=== PATIENT | male | born 1960 | race Caucasian/White ===

== ENCOUNTER 2016-07-14 08:11 | Inpatient (IN) | payer BC ==
[~2016-07-14] VITALS: Ht 177.8 cm; Wt 98.0 kg
[2016-07-14] MEDS ORDERED: DILTIAZEM BOLUS / DRIP IV STA (08:28)
[2016-07-14] MEDS ORDERED: ASPCH81X PO (08:28)
[2016-07-14] MEDS ORDERED: ASPI325T45 PO (08:30)
[2016-07-14 08:37] LABS: BASO % 0.3 %; BASO ABS # 0.03 K/uL (0-0.2); COMPLETE YES; EOS % 0.7 %; HEMATOCRIT 45.7 % (42-52); IG% 0.5 %; LYMPH % 23.3 %; LYMPH ABS # 2.29 K/uL (1.2-3.4); MEAN CELL VOLUME 92.3 fL (80-100); MEAN CORPUSCULAR HEMOGLOBIN 30.9 pg (25-34); MEAN CORPUSCULAR HGB CONC 33.5 g/dl (32-36); MEAN PLATELET VOLUME 9.5 fL (7.4-10.4); MONO % 8.6 %; NEUT % 66.6 %; PLATELET COUNT 317 K/uL (130-400); RED BLOOD COUNT 4.95 M/uL (4.7-6.1); WHITE BLOOD COUNT 9.81 K/uL (4.8-10.8)
--- NOTE | 2016-07-14 08:39 | EMERGENCY ROOM VISIT NOTE ---
History First contact with patient: 08:19 Chief Complaint: CHEST PAIN Stated Complaint: DIZZINESS,BACK PAIN, CHEST PAIN Nursing Triage Summary: pt reports since 629 while at work he developed left sided chest pain, dizziness, lower back pain and feeling lightheaded. pt denies any hx of a-fib. History of Present Illness The patient is a 55 year old male who presents to the Emergency Room via private vehicle with complaints of "dizziness, back pain, chest pain". The patient states that he has had an irregular heartbeat off and on for the past few years. He has not been told any specific diagnosis or rhythm. He notes that today around 6:30 AM, he began with lightheadedness, that progressed to back pain and pain in the left anterior chest around 7 AM this morning. He did have diaphoresis, and then fell cold. This was with activity. There is minimal left anterior chest pain rated as a 1/10. He did take 2 full strength aspirin today. He notes that a few years ago he had a Holter monitor, and exercise stress test which showed that he does have a thickened left side of his heart. He denies any anticoagulant use other than aspirin, history of heart attack in the past, and notes that his blood pressure has been pretty high. It is unclear how long his symptoms have been totally occurring. He notes that he does drink regularly, and is unable to quantify use of beers. Review of Systems A complete 10-point Review of Systems was discussed with the patient, with pertinent positives and negatives listed in the History of Present Illness. All remaining Review of Systems questions can be considered negative unless otherwise specified. Past Medical/Surgical History Medical Problems: (1) afib wit rvr, heavy alcohol intake for yrs High blood pressure, anxiety Family History Father has colon cancer, otherwise not remarkable. Social History Smoking Status: Never Smoker Social History: Patient is currently employed at [email or web address] Current/Historical Medications Scheduled Aspirin (Aspirin Chewable), 81 MG PO DAILY Scheduled PRN Aspirin (Aspirin), 650 MG PO DAILY PRN for Dizziness or Vertigo Allergies Coded Allergies: Penicillins (Verified Allergy, Intermediate, RASH, 07/14/16) Physical Exam Vital Signs Date Time Temp Pulse Resp B/P Pulse Ox O2 Delivery O2 Flow Rate FiO2 07/14/16 11:00 107 19 145/96 94 Room Air 07/14/16 10:30 128 16 134/81 93 Room Air 07/14/16 10:00 118 20 111/90 93 Room Air 07/14/16 09:30 122 20 125/81 92 Room Air 07/14/16 09:23 102 16 138/88 94 Room Air 07/14/16 08:45 167 15 124/88 94 Room Air 07/14/16 08:30 152 14 149/88 07/14/16 08:19 172 07/14/16 08:17 97 Room Air 07/14/16 08:15 36.7 159 22 123/106 100 Room Air 07/14/16 08:15 100 Room Air Physical Exam VITAL SIGNS - Vital signs and nursing notes were reviewed. Patient is afebrile , blood pressure 123/106, is tachycardic at a rate of 159 bpm, and is saturating well on room air 100%. GENERAL -55-year-old male appearing his stated age who is in no acute distress. He talks in full sentences. There is no conversational dyspnea. Communicates well with provider and answers questions appropriately. SKIN - Without rashes. HEAD - NC/AT. No evidence of trauma to the head. EYES - PERRL with EOMI bilaterally. Sclera anicteric. Palpebral conjunctiva pink and moist with no injection noted. EARS - No deformities of external structures noted on gross examination bilaterally. No pain elicited with palpation of the tragus bilaterally. External auditory canals without discharge or otorrhea. Tympanic membranes pearly spear without retraction or bulging. No fluid or purulent material visualized behind the TM. Handle of malleus, umbo, cone of light, pars tensa/ flaccid all easily visualized. NOSE - Midline and without cyanosis. No epistaxis or purulent drainage noted. Septum midline without deviation or septal hematoma noted. MOUTH/OROPHARYNX - Without perioral cyanosis. Buccal mucosa pink and moist and without leukoplakia. Tongue midline with equal elevation of palate bilaterally. No tonsillar hypertrophy, erythema, or exudates noted. Fair dentition noted. NECK - Neck with FROM. No meningismus. LUNGS - Chest wall symmetric without accessory muscle use, intercostals retractions, or central cyanosis. Normal vesicular breath sounds CTA B/L. No wheezes, rales, or rhonchi appreciated. CARDIAC - there is an irregular heart rate with S1/S2. No murmur, rubs, or gallops appreciated. ABDOMEN - Abdominal contour without pulsations or visible masses. BS normoactive all four quadrants. No tenderness, palpable masses, hepatosplenomegaly, or ascites noted. EXTREMITIES - No clubbing or peripheral cyanosis. No pretibial edema present. The pulse is irregularly irregular. +5/5 strength noted in UE/LE bilaterally. NEUROLOGIC - Cranial nerves II through XII grossly intact. Sensory intact to light touch throughout. PSYCH - A&Ox3 and cooperates fully with examiner. Pt is very pleasant and interacts well with examiner. Medical Decision & Procedures ER Provider Diagnostic Interpretation: CHEST ONE VIEW PORTABLE CLINICAL HISTORY: Chest pain, dizziness COMPARISON STUDY: No previous studies for comparison. FINDINGS: Lung volumes are normal. There is no pneumothorax or pleural effusion. Pulmonary vascularity is normal. No consolidation is identified. There is borderline cardiomegaly. IMPRESSION: No acute cardiopulmonary findings. Electronically signed by: Jax Dumont M.D. 07/14/2016 8:59 AM Dictated Date/Time: 07/14/2016 8:59 AM Laboratory Results 07/14/16 08:20 Red Blood Count 4.95, Mean Corpuscular Volume 92.3, Mean Corpuscular Hemoglobin 30.9, Mean Corpuscular Hemoglobin Concent 33.5, Mean Platelet Volume 9.5, Neutrophils (%) (Auto) 66.6, Lymphocytes (%) (Auto) 23.3, Monocytes (%) (Auto) 8.6, Eosinophils (%) (Auto) 0.7, Basophils (%) (Auto) 0.3, Neutrophils # (Auto) 6.53, Lymphocytes # (Auto) 2.29, Monocytes # (Auto) 0.84, Eosinophils # (Auto) 0.07, Basophils # (Auto) 0.03 07/14/16 08:20 Test 07/14/16 08:20 07/14/16 09:25 07/14/16 09:55 White Blood Count 9.81 K/uL (4.8-10.8) Red Blood Count 4.95 M/uL (4.7-6.1) Hemoglobin 15.3 g/dL (14.0-18.0) Hematocrit 45.7 % (42-52) Mean Corpuscular Volume 92.3 fL (80-100) Mean Corpuscular Hemoglobin 30.9 pg (25-34) Mean Corpuscular Hemoglobin Concent 33.5 g/dl (32-36) Platelet Count 317 K/uL (130-400) Mean Platelet Volume 9.5 fL (7.4-10.4) Neutrophils (%) (Auto) 66.6 % Lymphocytes (%) (Auto) 23.3 % Monocytes (%) (Auto) 8.6 % Eosinophils (%) (Auto) 0.7 % Basophils (%) (Auto) 0.3 % Neutrophils # (Auto) 6.53 K/uL (1.4-6.5) Lymphocytes # (Auto) 2.29 K/uL (1.2-3.4) Monocytes # (Auto) 0.84 K/uL (0.11-0.59) Eosinophils # (Auto) 0.07 K/uL (0-0.5) Basophils # (Auto) 0.03 K/uL (0-0.2) RDW Standard Deviation 46.6 fL (36.4-46.3) RDW Coefficient of Variation 13.8 % (11.5-14.5) Immature Granulocyte % (Auto) 0.5 % Immature Granulocyte # (Auto) 0.05 K/uL (0.00-0.02) Prothrombin Time 10.3 SECONDS (9.0-12.0) Prothromb Time International Ratio 1.0 (0.9-1.1) D-Dimer < 190 ug/L FEU (0-500) Anion Gap 12.0 mmol/L (3-11) Est Creatinine Clear Calc Drug Dose 99.6 ml/min Estimated GFR () 97.1 Estimated GFR (Non- 83.8 BUN/Creatinine Ratio 16.3 (10-20) Calcium Level 9.0 mg/dl (8.5-10.1) Magnesium Level 2.1 mg/dl (1.8-2.4) Total Bilirubin 0.5 mg/dl (0.2-1) Aspartate Amino Transf (AST/SGOT) 69 U/L (15-37) Alanine Aminotransferase (ALT/SGPT) 47 U/L (12-78) Alkaline Phosphatase 57 U/L (45-117) Total Protein 7.7 gm/dl (6.4-8.2) Albumin 3.8 gm/dl (3.4-5.0) Globulin 3.9 gm/dl (2.5-4.0) Albumin/Globulin Ratio 1.0 (0.9-2) Thyroid Stimulating Hormone (TSH) 2.420 uIu/ml (0.300-4.500) Chemistry Specimen Hemolysis Urine Color YELLOW Urine Appearance CLEAR (CLEAR) Urine pH 6.0 (4.5-7.5) Urine Specific [place] 1.007 (1.000-1.030) Urine Protein NEG (NEG) Urine Glucose (UA) NEG (NEG) Urine Ketones NEG (NEG) Urine Occult Blood NEG (NEG) Urine Nitrite NEG (NEG) Urine Bilirubin NEG (NEG) Urine Urobilinogen NEG (NEG) Urine Leukocyte Esterase NEG (NEG) Urine Opiates Screen NEG (NEG) Urine Methadone, Qualitative NEG (NEG) Urine Barbiturates NEG (NEG) Urine Phencyclidine (PCP) Level NEG (NEG) Ur Amphetamine/Methamphetamine NEG (NEG) MDMA (Ecstasy) Screen NEG (NEG) Urine Benzodiazepines Screen NEG (NEG) Urine Cocaine Metabolite NEG (NEG) Urine Marijuana (THC) NEG (NEG) Bedside Troponin I 0.000 ng/ml (0-0.045) Medications Administered Medications (Trade) Dose Ordered Sig/Francesca Route Start Time Stop Time Status Last Admin Dose Admin Diltiazem HCl 1 ea 1 ea NOW STAT IV 07/14/16 08:28 07/14/16 08:33 DC 07/14/16 09:13 1 EA Diltiazem HCl 125 mg/Dextrose 125 ml @ 10 mls/hr [id number] PRN IV 07/14/16 08:45 07/14/16 09:05 DC 07/14/16 08:59 10 MLS/HR Diltiazem HCl/ Dextrose (Cardizem Inj/D5 100ml) 125 ml @ 0 mls/hr Q0M PRN IV 07/14/16 09:15 08/13/16 09:14 07/14/16 16:28 15 MLS/HR Medical Decision Patient was seen and evaluated as above. After obtaining a thorough history and physical examination IV access was initiated and the above workup was performed. EKG was obtained upon his entrance and reveals atrial fibrillation with RVR, and and nonspecific ST segment abnormality. There is minimal chest pain at this time, he is alert and has already taken 2 aspirin. He has never heard the diagnosis of atrial fibrillation previously. He'll be started on a Cardizem drip at a 20 mg bolus, followed by 10 mg per hour drip. This successfully decrease his heart rate from the 170s down to 120s. After roughly 2 hours, his resting average is right around 100 bpm. Unfortunately, atrialfibrillation has persisted, and due to what appears to be a new onset of this I believe that further management may be warranted. I do not believe that cardioversion at this time would be appropriate, given the unknown duration of the atrial fibrillation. CBC unremarkable for acute process, d-dimer negative, CMP with glucose of 138, and AST elevated at 69. Troponin negative 2. TSH unremarkable. The urine is also unremarkable as well as urine toxicology. Chest x-ray unremarkable for acute process, there is borderline cardiomegaly. Patient is aware that he does have wall thickening as identified on previous echo. Please refer to further documentation regarding the patient's stay, as she'll be admitted for further evaluation and management to [facility] service as per request. Although he notes that he does follow with [facility], he no longer wishes to follow with them. In evaluation treatment this patient following differential diagnoses were entertained: Atrial fibrillation, PE, dissection, NM, among others. Impression Primary Impression: Atrial fibrillation Departure Information Dispostion Admitted as an inpatient Condition FAIR Referrals No Doctor, Assigned (PCP) [facility] Instructions [facility]
[2016-07-14] MEDS ORDERED: DILTIAZEM HCL INJ 125 MG in DEXTROSE 5% 100ML IV PRN (08:45)
[2016-07-14 08:52] LABS: BUN/CREATININE RATIO 16.3 (10-20); MAGNESIUM 2.1 mg/dl (1.8-2.4)
--- NOTE | 2016-07-14 09:01 | DIAGNOSTIC IMAGING REPORT ---
CHEST ONE VIEW PORTABLE CLINICAL HISTORY: Chest pain, dizziness COMPARISON STUDY: No previous studies for comparison. FINDINGS: Lung volumes are normal. There is no pneumothorax or pleural effusion. Pulmonary vascularity is normal. No consolidation is identified. There is borderline cardiomegaly. IMPRESSION: No acute cardiopulmonary findings. Electronically signed by: Jax Dumont M.D. 07/14/2016 8:59 AM Dictated Date/Time: 07/14/2016 8:59 AM
[2016-07-14 09:08] LABS: THYROID STIMULATING HORMONE 2.42 uIu/ml (0.300-4.500)
[2016-07-14] MEDS ORDERED: DILTIAZEM HCL 5 MG/ML 5 ML VIAL ONE (09:11)
[2016-07-14] MEDS ORDERED: DILTIAZEM HCL INJ 125 MG in DEXTROSE 5% 100ML 100 ML IV PRN (09:15)
[2016-07-14 09:46] LABS: URINE APPEARANCE CLEAR (CLEAR); URINE BILIRUBIN NEG (NEG); URINE COLOR YELLOW; URINE NITRITE NEG (NEG); URINE SPECIFIC GRAVITY 1.007 (1.000-1.030); UROBILINOGEN NEG (NEG); ZZUR CULT IF INDIC CLEAN CATCH NO
[2016-07-14 09:53] LABS: MANUAL MICROSCOPIC REQUIRED? NO; REVIEW REQ? NO
[2016-07-14 10:26] LABS: BENZODIAZEPINE, URINE NEG (NEG); COCAINE,URINE NEG (NEG); PHENCYCLIDINE, URINE NEG (NEG)
[2016-07-14] MEDS ORDERED: ZOLPIDEM TARTRATE 5 MG TAB PO PRN (11:15)
[2016-07-14] MEDS ORDERED: LORAZEPAM 1 MG TAB PO PRN (11:15)
[2016-07-14] MEDS ORDERED: ALUMINUM/MAGNESIUM/SIMETH (MAALOX MAX) 30 ML UDC PO PRN (11:15)
[2016-07-14] MEDS ORDERED: ACETAMINOPHEN 325 MG TAB PO PRN (11:15)
[2016-07-14] MEDS ORDERED: MAGNESIUM HYDROXIDE SUSP 30 ML UDC PO PRN (11:15)
[2016-07-14] MEDS ORDERED: DILTIAZEM BOLUS / DRIP IV SCH (11:15)
[2016-07-14] MEDS ORDERED: MoRPHine SULFATE 2 MG/ML CARP IV PRN (11:15)
[2016-07-14] MEDS ORDERED: ONDANSETRON INJ 2 MG/ML 2 ML VIAL IV PRN (11:15)
[2016-07-14] MEDS ORDERED: POLYETHYLENE (MIRALAX) 17 GM PACK PO PRN (11:15)
--- NOTE | 2016-07-14 11:29 | Progress Note ---
Progress Note Date of Service July 14, 2016. Progress Note afib wit rvr, heavy alcohol intake for yrs, [phone]
--- NOTE | 2016-07-14 12:03 | HISTORY & PHYSICAL EXAMINATION ---
DATE OF ADMISSION: 07/14/2016 CHIEF COMPLAINT: Palpitation and chest pain. HISTORY OF PRESENT ILLNESS: The patient is a 55-year-old white male with history of palpitation, high blood pressure, anxiety, heavy alcohol intake, coming to the hospital Emergency Department because of the above chief complaint. The patient reported he has primary care physician in [facility]. However, he would like to switch to [facility]. Therefore, I agree to continue taking care of him. The patient reported he has been feeling like chest pain, dizziness and back pain. There was a feeling of irregular heart beating, racing heart come on and off for several years. It about 1 or 2 times in 1 or 2 years. PCP setting up Holter monitor some evaluations and there was no really final diagnosis. This morning around 6:30, he begin to feeling palpitations, lightheadedness associated with chest pain. The pain level was 1-2/10. The pain radiation back to the upper back. Associated with diaphoresis and feel cold and lasting about 10-15 minutes. He was taking aspirin until 1 month ago. He running out of it and he discontinued it. In the Emergency Room, his heart rate was up to 170-150. He got 20 mg Cardizem bolus and then at 10 mg per hour drip. Currently, heart rate is around 100/90s. When I interviewed with him, he is awake, alert, and orientated, conversational, follows all commands. No chest pain, no palpitation, no any other symptoms. REVIEW OF SYSTEMS: Denies any fever or chills. Denied cough, sputum, shortness of breath. Denied palpitation. Currently, denied nausea, vomiting, abdominal pain, diarrhea, or constipation. Denied dysuria, urgency, or frequencies. Denied facial droop, slurry speeches or local weakness. Denies skin rashes. Otherwise, 14 points organized system review were negative. PAST MEDICAL HISTORY: Like I mentioned in the above which include hypertension, anxiety, palpitations. SOCIAL HISTORY: Never smoked, but drink alcohol 4-5 beers every day for many years. Never had history of alcohol withdrawal. FAMILY HISTORY: Father has colon cancer, otherwise not remarkable. ALLERGIES: ALLERGIC TO PENICILLIN. MEDICATIONS: Currently taking include aspirin, but running out of it more than 1 month ago. PHYSICAL EXAMINATION: VITAL SIGNS: Temperature is 36.7. Current heart rate is 90, respiratory rate 16, blood pressure 131/81, pulse ox was 83% in room air. GENERAL: The patient is a white male, awake, alert and orientated, conversational, follows all commands. HEAD: Normocephalic. EYES: Pupils equal, round responds to light. EARS: Ear was normal. NOSE: Normal. NECK: Supple. Thyroid no enlargement. Trachea midline. HEART: Irregularly irregular S1, S2. No murmur. LUNGS: Decreased breathing sounds. There was no wheezing, rhonchi and crackles. ABDOMEN: Soft, nontender. Bowel sound was positive. GENITOURINARY AND RECTAL: Deferred. EXTREMITIES: Bilateral lower extremity, no swelling. Homans sign was negative. Calf was nontender. PSYCHIATRY EVALUATION: No suicidal, no homicidal, no anxieties. NEUROLOGICAL EVALUATION: Cranial nerves II-XII was intact. There was no local deficits. LABORATORY STUDIES: WBC 9.8, hemoglobin 15, platelets 317. Sodium 138, potassium 4, BUN 16, creatinine 1. Blood glucose 138. IMAGING STUDIES: Chest x-ray has no acute disease. EKG in the ER shows Afib with rapid ventricular response. No ST-T wave changes. ASSESSMENT AND PLAN: A 55-year-old white male with the problems below: 1. Atrial fibrillation with rapid ventricular response, new identified, new diagnosed. 2. History of palpitation. 3. Chest pain associated with atrial fibrillation with risk factors of hypertension. We will need to check fasting lipid panel as well and check hemoglobin A1c as well. We will have cardiology evaluation, stress test if needed. 4. Heavy alcohol intake long-term. No history of alcohol withdrawal. The patient reported stay in the hospital 1 or 2 days could be no problem. However, we will check a folic acid levels. Will give folic acid, vitamin B12, thiamine and multiple vitamin. Will start AWOL protocol, Ativan p.o. as needed for alcohol withdrawal symptoms. I did counseling about quit alcohol drinking because probably alcohol issues may cause his Afib conditions and long-term alcohol intake may have caused alcoholic cardiomyopathy related disease. Therefore, echocardiogram was ordered as well for this purpose as well, not only for the Afib. At the same time, we will have cardiology consultation. Check cardiac enzymes, troponin 2 sets more. 5. We will start aspirin. Follow up blood pressure levels. For now he is not on any blood pressure medication. 6. Gastrointestinal prophylaxis will be PPI and DVT prophylaxis is on Lovenox. Like I mentioned in the above, the patient has PCP with [facility]. Upon discharge he needs to have navigator help to setting up office follow-up visit with [facility] physicians. JIMMIE
[2016-07-14 12:40] VITALS: BP 132/97; PULSE 104; TEMP 36.7; O2SAT 94; Ht 177.8 cm; Wt 98.0 kg
[2016-07-14 12:45] VITALS: BP 132/97; PULSE 104; TEMP 36.7; O2SAT 94
[2016-07-14 14:59] LABS: PROTHROMBIN TIME (PATIENT) 10.3 SECONDS (9.0-12.0)
[2016-07-14 15:08] VITALS: BP 125/87; PULSE 88; TEMP 36.7; O2SAT 96
[2016-07-14] MEDS: ENOXAPARIN 40 MG/0.4 ML SYR SC SCH (16:30)
--- NOTE | 2016-07-14 18:27 | Cardiology Consultation ---
Cardiology Consultation Date of Consultation: July 14, 2016. Requesting Physician: Dr. Aleman Reason for Consultation: Atrial fibrillation with rapid ventricular response Pt evaluation today including: conversation w/ patient, physical exam, lab review, review of studies, review of inpatient medication list History of Present Illness This is a 55-year-old gentleman who has a history of hypertension and heavy alcohol intake and a long history of palpitations which I believe have been diagnosed as atrial fibrillation but I'm not sure. His prior evaluation was through [facility], that occurred several years ago although he can't give me a precise dates. He reports having intermittent episodes of an irregular heart rate, he believes the first episode was 2 or 3 years ago and he would get episodes every 2 or 3 months. He believes they lasted from 15 minutes to an hour or so. He reports having a normal stress test in the past when these palpitations were evaluated. He tells me that no specific treatment for the arrhythmia was recommended. He presented to the emergency room with worsening palpitations. He had onset of a rapid irregular heart rate when he went into work at about 6:30 AM, this continued and he came to the emergency room. In the emergency room he was found to be in atrial fibrillation with rapid ventricular response. He also reported having discomfort with pain radiating to his back and he was diaphoretic. He was treated with intravenous Cardizem and shortly after admission the rhythm converted to normal. The duration of the arrhythmia was probably about 8 hours. At the time of my evaluation (in sinus rhythm) he feels well. He does not have any residual palpitations or chest discomfort. He notes no change in his exercise ability recently and no exertional symptoms. Past Medical/Surgical History (1) Atrial fibrillation Social History Smoking Status: Unknown if Ever Smoked History of Alcohol Use: Yes (4-5 beers daily) Review of Systems Constitutional: No fever, No weakness, No weight loss Respiratory: No cough, No dyspnea on exertion, No shortness of breath, No wheezing Cardiac: + chest pain, + palpitations, + see HPI, No PND, No edema, No orthopnea Abdomen: No GI bleeding, No diarrhea, No nausea, No pain, No vomiting Male : No nocturia more than once/night, No sexual dysfunction, No slowing stream, No urinary frequency Neurologic: No balance problems, No numbness/tingling, No paralysis, No weakness Heme: No abnormal bleeding/bruising, No clotting problems Endo: No fatigue Skin: No problem reported All Other Systems: Reviewed and Negative Allergies Coded Allergies: Penicillins (Verified Allergy, Intermediate, RASH, 07/14/16) Medications Current Inpatient Medications Medications (Trade) Dose Ordered Sig/Francesca Route Start Time Stop Time Status Last Admin Dose Admin Diltiazem HCl/ Dextrose (Cardizem Inj/D5 100ml) 125 ml @ 0 mls/hr Q0M PRN IV 07/14/16 09:15 08/13/16 09:14 07/14/16 16:28 15 MLS/HR Enoxaparin Sodium (Lovenox Inj) 40 mg Q24H SC 07/14/16 16:00 08/13/16 15:59 07/14/16 16:30 40 MG Acetaminophen (Tylenol Tab) 650 mg Q4H PRN PO 07/14/16 11:15 08/13/16 11:14 Al Hydrox/Mg Hydrox/Simethicone (Maalox Max Susp) 15 ml Q4H PRN PO 07/14/16 11:15 08/13/16 11:14 Magnesium Hydroxide (Milk Of Magnesia Susp) 30 ml Q12H PRN PO 07/14/16 11:15 08/13/16 11:14 Zolpidem Tartrate (Ambien Tab) 5 mg HSZ PRN PO 07/14/16 11:15 08/13/16 11:14 Ondansetron HCl (Zofran Inj) 4 mg Q6H PRN IV 07/14/16 11:15 08/13/16 11:14 Morphine Sulfate (MoRPHine SULFATE INJ) 2 mg Q30M PRN IV 07/14/16 11:15 07/28/16 11:14 Aspirin (Ecotrin Tab) 81 mg QAM PO 07/15/16 09:00 08/14/16 08:59 Polyethylene (Miralax Powder Packet) 17 gm DAILY PRN PO 07/14/16 11:15 08/13/16 11:14 Lorazepam (Ativan Tab) 1 mg ONE PRN PO 07/14/16 11:15 07/28/16 11:14 Multivitamins (Flintstones Complete Tab) 1 tab QAM PO 07/15/16 09:00 08/14/16 08:59 Thiamine HCl (Vitamin B-1 Tab) 100 mg QAM PO 07/15/16 09:00 08/14/16 08:59 Folic Acid (Folvite Tab) 1 mg QAM PO 07/15/16 09:00 08/14/16 08:59 Pantoprazole Sodium (Protonix Tab) 40 mg QAM PO 07/15/16 09:00 08/14/16 08:59 Physical Exam Vital Signs Past 12 Hours Date Time Temp Pulse Resp B/P Pulse Ox O2 Delivery O2 Flow Rate FiO2 07/14/16 16:00 Room Air 07/14/16 15:08 36.7 88 18 125/87 96 Room Air 07/14/16 12:45 36.7 104 18 132/97 94 Room Air 07/14/16 12:40 Room Air 07/14/16 12:40 36.7 104 18 132/97 94 Room Air 07/14/16 12:05 110 19 132/102 94 07/14/16 11:21 117 07/14/16 11:00 107 19 145/96 94 Room Air 07/14/16 10:30 128 16 134/81 93 Room Air 07/14/16 10:00 118 20 111/90 93 Room Air 07/14/16 09:30 122 20 125/81 92 Room Air 07/14/16 09:23 102 16 138/88 94 Room Air 07/14/16 08:45 167 15 124/88 94 Room Air 07/14/16 08:30 152 14 149/88 07/14/16 08:19 172 07/14/16 08:17 97 Room Air 07/14/16 08:15 36.7 159 22 123/106 100 Room Air 07/14/16 08:15 100 Room Air Constitutional: General Apperance: heathly-appearing Level of Distress: NAD Psychiatric: Mental Status: active & alert Head: normocephalic Eyes: EOM: EOMI ENMT: normal ENT inspection, hearing grossly normal Neck: supple, no masses Lungs: Respiratory effort: no dyspnea, good air movement Auscultation: breath sounds normal, no wheezing Cardiovascular: Heart Auscultation: RRR, no murmurs, no rubs, no gallops Peripheral Pulses: Bruits: none appreciated Abdomen: Bowel Sounds: normal Inspection & Palpation: soft, no tenderness, guarding & rebound, no masses Musculoskeletal: normal strength (5/5 throughout) Extremities: no edema Neurologic: Cranial Nerves: grossly intact Sensation: grossly intact Data Laboratory Results: Last 24 Hours Test 07/14/16 08:20 07/14/16 08:25 07/14/16 09:25 07/14/16 09:55 White Blood Count 9.81 K/uL Red Blood Count 4.95 M/uL Hemoglobin 15.3 g/dL Hematocrit 45.7 % Mean Corpuscular Volume 92.3 fL Mean Corpuscular Hemoglobin 30.9 pg Mean Corpuscular Hemoglobin Concent 33.5 g/dl Platelet Count 317 K/uL Mean Platelet Volume 9.5 fL Neutrophils (%) (Auto) 66.6 % Lymphocytes (%) (Auto) 23.3 % Monocytes (%) (Auto) 8.6 % Eosinophils (%) (Auto) 0.7 % Basophils (%) (Auto) 0.3 % Neutrophils # (Auto) 6.53 K/uL Lymphocytes # (Auto) 2.29 K/uL Monocytes # (Auto) 0.84 K/uL Eosinophils # (Auto) 0.07 K/uL Basophils # (Auto) 0.03 K/uL RDW Standard Deviation 46.6 fL RDW Coefficient of Variation 13.8 % Immature Granulocyte % (Auto) 0.5 % Immature Granulocyte # (Auto) 0.05 K/uL Prothrombin Time 10.3 SECONDS Prothromb Time International Ratio 1.0 D-Dimer < 190 ug/L FEU Sodium Level 138 mmol/L Potassium Level 4.0 mmol/L Chloride Level 105 mmol/L Carbon Dioxide Level 21 mmol/L Anion Gap 12.0 mmol/L Blood Urea Nitrogen 16 mg/dl Creatinine 1.00 mg/dl Est Creatinine Clear Calc Drug Dose 99.6 ml/min Estimated GFR () 97.1 Estimated GFR (Non- 83.8 BUN/Creatinine Ratio 16.3 Random Glucose 138 mg/dl Calcium Level 9.0 mg/dl Magnesium Level 2.1 mg/dl Total Bilirubin 0.5 mg/dl Aspartate Amino Transf (AST/SGOT) 69 U/L Alanine Aminotransferase (ALT/SGPT) 47 U/L Alkaline Phosphatase 57 U/L Total Protein 7.7 gm/dl Albumin 3.8 gm/dl Globulin 3.9 gm/dl Albumin/Globulin Ratio 1.0 Thyroid Stimulating Hormone (TSH) 2.420 uIu/ml Chemistry Specimen Hemolysis Bedside Troponin I 0.000 ng/ml 0.000 ng/ml Urine Color YELLOW Urine Appearance CLEAR Urine pH 6.0 Urine Specific Ramah 1.007 Urine Protein NEG Urine Glucose (UA) NEG Urine Ketones NEG Urine Occult Blood NEG Urine Nitrite NEG Urine Bilirubin NEG Urine Urobilinogen NEG Urine Leukocyte Esterase NEG Urine Opiates Screen NEG Urine Methadone, Qualitative NEG Urine Barbiturates NEG Urine Phencyclidine (PCP) Level NEG Ur Amphetamine/Methamphetamine NEG MDMA (Ecstasy) Screen NEG Urine Benzodiazepines Screen NEG Urine Cocaine Metabolite NEG Urine Marijuana (THC) NEG Test 07/14/16 14:00 07/14/16 15:15 Creatine Kinase MB Ratio Creatine Kinase MB 3.0 ng/ml Troponin I < 0.015 ng/ml EKG: Atrial fibrillation with a rapid heart rate (149 bpm). Minor lateral ST-T abnormalities. Telemetry reviewed: Atrial fibrillation with a rapid ventricular response on arrival, termination to sinus rhythm shortly after admission. No pause with termination. Assessment & Plan #1. Atrial fibrillation: He has what I believe is long-standing atrial fibrillation although I don't know how well that been documented. He was clearly documented today, based on his symptoms this is a more prolonged episode that he generally has. It converted quickly to sinus rhythm after arrival. He has not been treated with rate control medications or anticoagulants based on his history. Since this is a longest episode he has had and it was associated with significant symptoms including chest discomfort we need to evaluate him for underlying structural heart disease. Check echo in AM, Trop negative. We may need to treat with rate control and possibly anti- arrhythmic meds. Will decide after echo. #2. Chest discomfort: This is somewhat worrisome although the troponin was negative. We'll check an echo for left ventricular function and wall motion abnormalities. Thank you for allowing me to participate in his care.
[2016-07-14 19:05] VITALS: BP 141/94; PULSE 80; TEMP 36.7; O2SAT 95
[2016-07-14 23:27] VITALS: BP 118/78; PULSE 69; TEMP 36.7; O2SAT 93
[2016-07-15 03:37] VITALS: BP 131/81; PULSE 63; TEMP 36.5; O2SAT 94
[2016-07-15 06:07] LABS: BASO % 0.2 %; BASO ABS # 0.02 K/uL (0-0.2); COMPLETE YES; EOS % 1.2 %; HEMATOCRIT 42.5 % (42-52); IG% 0.5 %; LYMPH % 24.3 %; LYMPH ABS # 2.23 K/uL (1.2-3.4); MEAN CELL VOLUME 93.2 fL (80-100); MEAN CORPUSCULAR HEMOGLOBIN 31.6 pg (25-34); MEAN CORPUSCULAR HGB CONC 33.9 g/dl (32-36); MEAN PLATELET VOLUME 9.9 fL (7.4-10.4); MONO % 8.1 %; NEUT % 65.7 %; PLATELET COUNT 283 K/uL (130-400); RED BLOOD COUNT 4.56 M/uL (4.7-6.1); WHITE BLOOD COUNT 9.17 K/uL (4.8-10.8)
[2016-07-15 06:24] LABS: PARTIAL THROMBOPLASTIN RATIO 1.1; PROTHROMBIN TIME (PATIENT) 10.4 SECONDS (9.0-12.0)
[2016-07-15 06:39] LABS: BUN/CREATININE RATIO 14.9 (10-20); CALCIUM 8.7 mg/dl (8.5-10.1); CREATININE 0.85 mg/dl (0.60-1.40); MAGNESIUM 2.5 mg/dl (1.8-2.4); POTASSIUM 4.3 mmol/L (3.5-5.1)
[2016-07-15 06:44] LABS: CHOLESTEROL/HDL RATIO 1.8; PHOSPHORUS 3.4 mg/dl (2.5-4.9)
[2016-07-15] MEDS ORDERED: PERFLUTREN LIPID MICROSPHERE (DEFINITY) IV ONE (07:24)
[2016-07-15 07:42] LABS: ESTIMATED AVERAGE GLUCOSE 108 mg/dl; HA1C FLAG Normal (Normal)
[2016-07-15] MEDS: FLINTSTONES COMPLETE CHEWABLE TAB PO SCH (08:08)
[2016-07-15] MEDS: THIAMINE HCL 100 MG TAB PO SCH (08:08)
[2016-07-15] MEDS: ASPIRIN 81 MG ECTAB PO SCH (08:08)
[2016-07-15] MEDS: PANTOprazole SOD 40 MG TAB PO SCH (08:08)
--- NOTE | 2016-07-15 09:40 | ECHOCARDIOGRAM REPORT ---
*NOTICE TO RECEIVING DEMOCRAT AGENCY This information is strictly Confidential and protected under [place] law. [place] law prohibits you from making any further disclosure of this information unless further disclosure is expressly permitted by the written consent of the person to whom it pertains or is authorized by law. A general authorization for the release of medical or other information is not sufficient for this purpose. Hospital accepts no responsibility if the information is made available to any other person, INCLUDING THE PATIENT. Interpretation Summary * Name: MATTHEW HECK Study Date: 07/15/2016 06:53 AM BP: 131/81 mmHg * Patient Location: C.2E\S\E202\S\1 HR: 63 * : 1960 (M/d/yyyy) Gender: Male Height: 70 in * Age: 55 yrs Ethnicity: [place] Weight: 229 lb * Ordering Physician: Dima Aleman * Referring Physician: Self, Referred * Performed By: Angelina Fan RDCS * * Reason For Study: Atrial fibrillation * BSA: 2.2 m2 * -- Conclusions -- * Left ventricular systolic function is mildly reduced. * Diastolic dysfunction, Grade II, consistent with elevated left atrial pressure. * There are regional wall motion abnormalities as specified. * There is mild mitral regurgitation. * Right ventricular systolic pressure is normal. Procedure Details * A complete two-dimensional transthoracic echocardiogram was performed (2D, M-mode, Doppler and color flow Doppler). * A contrast injection of Definity was performed to improve assessment of LV function. * Contrast was injected into an intravenous site in the left arm. * One vial of Definity ultrasound contrast was diluted in normal saline to a total volume of 10 ml. A total of '2' ml of solution was administered during imaging. * Lot # [id number] of Definity utilized for procedure. * Expiration date JUN 22. * The attending nurse who injected the contrast agent was Andres Queen RN. Left Ventricle * The left ventricle is normal in size. * There is normal left ventricular wall thickness. * Ejection Fraction = 40-45%. * Left ventricular systolic function is mildly reduced. * Diastolic dysfunction, Grade II, consistent with elevated left atrial pressure. * There are regional wall motion abnormalities as specified. * Anterior apex appears moderately hypokinetic Right Ventricle * The right ventricle is normal in size and function. Atria * The left atrial size is normal. * Right atrial size is normal. Mitral Valve * The mitral valve is grossly normal. * There is mild mitral regurgitation. Tricuspid Valve * The tricuspid valve is not well visualized, but is grossly normal. * There is mild tricuspid regurgitation. * Right ventricular systolic pressure is normal. Aortic Valve * The aortic valve is normal in structure and function. * No hemodynamically significant valvular aortic stenosis. * Trace aortic regurgitation. Great Vessels * The aortic root is normal size. Pericardium/Pleural * There is no pericardial effusion. MMode 2D Measurements and Calculations IVSd 1.0 cm LVIDd 5.1 cm LVIDs 3.6 cm LVPWd 1.2 cm IVS/LVPW 0.90 FS 29.3 % EDV(Teich) 126.0 ml ESV(Teich) 55.7 ml EF(Teich) 55.8 % EDV(cubed) 135.7 ml ESV(cubed) 48.0 ml EF(cubed) 64.6 % LV mass(C)d 218.2 grams LV mass(C)dI 98.7 grams/m\S\2 CO(Teich) 3.9 l/min CI(Teich) 1.8 l/min/m\S\2 SV(Teich) 70.3 ml SI(Teich) 31.8 ml/m\S\2 CO(cubed) 4.9 l/min CI(cubed) 2.2 l/min/m\S\2 SV(cubed) 87.7 ml SI(cubed) 39.6 ml/m\S\2 Ao root diam 3.5 cm Ao root area 9.9 cm\S\2 ACS 1.7 cm LA dimension 3.1 cm asc Aorta Diam 3.2 cm LA/Ao 0.88 LVOT diam 2.0 cm LVOT area 3.2 cm\S\2 LVAd ap4 36.4 cm\S\2 LVLd ap4 8.6 cm EDV(MOD-sp4) 125.0 ml LVAs ap4 22.9 cm\S\2 LVLs ap4 7.5 cm ESV(MOD-sp4) 58.1 ml EF(MOD-sp4) 53.5 % LVAd ap2 37.3 cm\S\2 LVLd ap2 9.0 cm EDV(MOD-sp2) 126.0 ml LVAs ap2 21.1 cm\S\2 LVLs ap2 6.6 cm ESV(MOD-sp2) 55.6 ml EF(MOD-sp2) 55.9 % CO(MOD-sp4) 3.7 l/min CI(MOD-sp4) 1.7 l/min/m\S\2 SV(MOD-sp4) 66.9 ml SI(MOD-sp4) 30.3 ml/m\S\2 CO(MOD-sp2) 3.9 l/min CI(MOD-sp2) 1.8 l/min/m\S\2 SV(MOD-sp2) 70.4 ml SI(MOD-sp2) 31.8 ml/m\S\2 Doppler Measurements and Calculations MV E max alvin 72.3 cm/sec MV A max alvin 57.2 cm/sec MV E/A 1.3 MV dec time 0.23 sec Ao V2 max 162.9 cm/sec Ao max PG 10.6 mmHg Ao max PG (full) 8.2 mmHg LEIGH(V,A) 1.5 cm\S\2 LEIGH(V,D) 1.5 cm\S\2 AI max alvin 198.2 cm/sec AI max PG 15.7 mmHg AI dec slope 82.9 cm/sec\S\2 AI P1/2t 699.9 msec LV V1 max PG 2.4 mmHg LV V1 max 77.1 cm/sec PA V2 max 96.4 cm/sec PA max PG 3.7 mmHg PA acc slope 432.1 cm/sec\S\2 PA acc time 0.15 sec TR max alvin 191.4 cm/sec PA pr(Accel) 9.3 mmHg
[2016-07-15 12:08] VITALS: BP 143/89; PULSE 65; TEMP 36.6; O2SAT 94
[2016-07-15 15:10] VITALS: BP 127/89; PULSE 62; TEMP 36.7; O2SAT 97
[2016-07-15] MEDS: ENOXAPARIN 40 MG/0.4 ML SYR SC SCH (16:18)
--- NOTE | 2016-07-15 17:25 | Cardiology Follow-Up ---
Subjective Date of Service: July 15, 2016. Pt evaluation today including: conversation w/ patient, physical exam, lab review, review of studies, review of inpatient medication list History of Present Illness This is a 55-year-old gentleman who has a history of hypertension and heavy alcohol intake and a long history of palpitations which I believe have been diagnosed as atrial fibrillation but I'm not sure. His prior evaluation was through [facility], that occurred in 2011 and I don't know how much follow-up he has had. He reports having intermittent episodes of an irregular heart rate, he believes the first episode was 2 or 3 years ago (although his evaluation was actually 5 years ago based on records) and he would get episodes every 2 or 3 months. He believes they typically lasted from 15 minutes to an hour or so. He did have a normal stress echo in 2011 (records in his chart). He tells me that no specific treatment for the arrhythmia was recommended. He presented to the emergency room with worsening palpitations. He had onset of a rapid irregular heart rate when he went into work at about 6:30 AM, this continued and he came to the emergency room. In the emergency room he was found to be in atrial fibrillation with rapid ventricular response. He also reported having discomfort with pain radiating to his back and he was diaphoretic. He was treated with intravenous Cardizem and shortly after admission the rhythm converted to normal. The duration of the arrhythmia was probably about 8 hours. At the time of my evaluation (in sinus rhythm) after admission he was feeling well. He did not have any residual palpitations or chest discomfort. He notes no change in his exercise ability recently and no exertional symptoms. He has had no further atrial fibrillation since admission, and no further chest discomfort. He is anxious to go home and does not want to stay another night. He has had an echocardiogram and serial enzymes. Social History Smoking Status: Unknown if Ever Smoked History of Alcohol Use: Yes (4-5 beers daily) Review of Systems Respiratory: No cough, No dyspnea on exertion, No shortness of breath, No wheezing Cardiac: + chest pain, + palpitations, + see HPI, No PND, No edema, No orthopnea Medications Cardiovascular: Item Value Date Time Aspirin 81 mg 07/15/16 0900 (Ecotrin Tab) QAM/PO 07/15/16 0808 Objective Vital Signs Past 12 Hours Date Time Temp Pulse Resp B/P Pulse Ox O2 Delivery O2 Flow Rate FiO2 07/15/16 16:00 Room Air 07/15/16 15:10 36.7 62 24 127/89 97 Room Air 07/15/16 12:08 36.6 65 16 143/89 94 Room Air 07/15/16 12:00 Room Air 07/15/16 08:00 Room Air Last Recorded Weight-Kilograms: 99.900 Intake & Output 8-Hour Column 07/14/16 07/15/16 07/15/16 16:00 00:00 08:00 Intake Total 1243 ml 835 ml Balance 1243 ml 835 ml 24-Hour Column 07/15/16 08:00 Intake Total 2078 ml Balance 2078 ml Physical Exam Constitutional: General Apperance: heathly-appearing Level of Distress: NAD Lungs: Respiratory effort: no dyspnea, good air movement Auscultation: breath sounds normal, no wheezing Cardiovascular: Heart Auscultation: RRR, no murmurs, no rubs, no gallops Peripheral Pulses: Bruits: none appreciated Extremities: no edema Data Laboratory Results: Last 24 Hours Test 07/14/16 22:00 07/15/16 05:10 Creatine Kinase MB 1.9 ng/ml Creatine Kinase MB Ratio Troponin I 0.019 ng/ml White Blood Count 9.17 K/uL Red Blood Count 4.56 M/uL Hemoglobin 14.4 g/dL Hematocrit 42.5 % Mean Corpuscular Volume 93.2 fL Mean Corpuscular Hemoglobin 31.6 pg Mean Corpuscular Hemoglobin Concent 33.9 g/dl Platelet Count 283 K/uL Mean Platelet Volume 9.9 fL Neutrophils (%) (Auto) 65.7 % Lymphocytes (%) (Auto) 24.3 % Monocytes (%) (Auto) 8.1 % Eosinophils (%) (Auto) 1.2 % Basophils (%) (Auto) 0.2 % Neutrophils # (Auto) 6.02 K/uL Lymphocytes # (Auto) 2.23 K/uL Monocytes # (Auto) 0.74 K/uL Eosinophils # (Auto) 0.11 K/uL Basophils # (Auto) 0.02 K/uL RDW Standard Deviation 47.4 fL RDW Coefficient of Variation 13.8 % Immature Granulocyte % (Auto) 0.5 % Immature Granulocyte # (Auto) 0.05 K/uL Prothrombin Time 10.4 SECONDS Prothromb Time International Ratio 1.0 Activated Partial Thromboplast Time 28.0 SECONDS Partial Thromboplastin Ratio 1.1 Sodium Level 138 mmol/L Potassium Level 4.3 mmol/L Chloride Level 106 mmol/L Carbon Dioxide Level 27 mmol/L Anion Gap 5.0 mmol/L Blood Urea Nitrogen 13 mg/dl Creatinine 0.85 mg/dl Est Creatinine Clear Calc Drug Dose 115.1 ml/min Estimated GFR () 112.9 Estimated GFR (Non- 97.4 BUN/Creatinine Ratio 14.9 Random Glucose 107 mg/dl Estimated Average Glucose 108 mg/dl Hemoglobin A1c 5.4 % Calcium Level 8.7 mg/dl Phosphorus Level 3.4 mg/dl Magnesium Level 2.5 mg/dl Total Bilirubin 1.0 mg/dl Direct Bilirubin 0.2 mg/dl Aspartate Amino Transf (AST/SGOT) 22 U/L Alanine Aminotransferase (ALT/SGPT) 40 U/L Alkaline Phosphatase 50 U/L Total Protein 7.1 gm/dl Albumin 3.3 gm/dl Triglycerides Level 128 mg/dl Cholesterol Level 145 mg/dl HDL Cholesterol 79 mg/dl LDL Cholesterol, Calculated 40 mg/dl VLDL Cholesterol, Calculated 26 mg/dl Cholesterol/HDL Ratio 1.8 Imaging: An echocardiogram done today demonstrates a normal left ventricular size, a moderately reduced left ventricular ejection fraction of 40-45% and possible anterior apical wall motion abnormalities. Telemetry reviewed: Sinus rhythm, no further atrial fibrillation since shortly after admission. Assessment and Plan #1. Atrial fibrillation: He has what I believe is long-standing atrial fibrillation although I don't know how well that been documented. It was clearly documented yesterday, based on his symptoms this is a more prolonged episode than he generally has but it was similar in character. It converted quickly to sinus rhythm after arrival. He has not been treated with rate control medications or anticoagulants based on his history. Since this is a longest episode he has had and it was associated with significant symptoms including chest discomfort we need to evaluate him for underlying structural heart disease. Trop negative. We will need to treat with rate control and possibly anti-arrhythmic meds. In view of his decreased left ventricular function we should start carvedilol for rate control. I would hold off on antiarrhythmic therapy now. We should consider anticoagulation, I would not use warfarin for him, one of the newer agents (I prefer Eliquis) would be indicated. #2. Chest discomfort: This is somewhat worrisome although the troponin was negative. He does have a mild cardiomyopathy, this could be alcohol related but he may have anteroapical hypokinesis and it could be ischemic. I think we should evaluate it, a catheterization is indicated given his presentation and likelihood of recurrent atrial fibrillation. If he stays until tomorrow we can do it tomorrow, if he goes home we can arrange it as an outpatient. I don't think a stress test is accurate enough in this case. #3. Cardiomyopathy: He has a mild cardiomyopathy but we should treat it. It is new based on his records with a normal left ventricular ejection fraction 2011. I will start carvedilol, I would start a dose of about 6.25 mg twice a day to also help with rate control during atrial fibrillation. We do need some test for ischemia and I think cardiac catheterization is indicated. Thank you for allowing me to participate in his care.
--- NOTE | 2016-07-15 17:45 | Progress Note ---
Subjective Date of Service: July 15, 2016. (Zeb Salazar CRNP) Subjective Pt evaluation today including: conversation w/ patient, physical exam, chart review, lab review, review of studies, conversation w/ retail sales consultant (jose g), review of inpatient medication list Pain: denies PO Intake: ania po Voiding: no voiding problems no chest pain no SOB no palpitations anxious (Zeb Salazar CRNP) Problem List Medical Problems: (1) Atrial fibrillation Status: Chronic (Zeb Salazar CRNP) Review of Systems Constitutional: No chills, No fatigue, No fever, No problem reported, No see HPI, No sweats, No weakness, No weight loss Respiratory: No cough, No dyspnea at rest, No dyspnea on exertion, No hemoptysis, No problem reported, No see HPI, No shortness of breath, No sputum, No wheezing Cardiac: No PND, No chest pain, No claudication, No edema, No orthopnea, No palpitations, No problem reported, No see HPI Abdomen: No GI bleeding, No constipation, No diarrhea, No nausea, No pain, No problem reported, No see HPI, No vomiting Musculoskeletal: No calf pain, No joint pain, No muscle pain, No problem reported, No see HPI, No swelling Neurologic: No balance problems, No memory loss, No numbness/tingling, No paralysis, No problem reported, No see HPI, No vertigo, No weakness Psychiatric: + anxiety Skin: No bleeding, No color change, No itch, No new/changing skin lesions, No problem reported, No rash, No see HPI (Zeb Salazar CRNP) Medications reviewed (Zeb Salazar CRNP) Objective Vital Signs Date Time Temp Pulse Resp B/P Pulse Ox O2 Delivery O2 Flow Rate FiO2 07/15/16 16:00 Room Air 07/15/16 15:10 36.7 62 24 127/89 97 Room Air 07/15/16 12:08 36.6 65 16 143/89 94 Room Air 07/15/16 12:00 Room Air 07/15/16 08:00 Room Air 07/15/16 04:00 Room Air 07/15/16 03:37 36.5 63 18 131/81 94 Room Air 07/14/16 23:59 Room Air 07/14/16 23:53 Room Air 07/14/16 23:27 36.7 69 17 118/78 93 Room Air 07/14/16 20:00 Room Air 07/14/16 19:05 36.7 80 18 141/94 95 Room Air (Zeb Salazar CRNP) Physical Exam General Appearance: WD/WN, no apparent distress Eyes: normal inspection Neck: supple Respiratory/Chest: chest non-tender, lungs clear, normal breath sounds, no respiratory distress, no accessory muscle use Cardiovascular: regular rate, rhythm, no edema, no gallop, no JVD, no murmur Abdomen: normal bowel sounds Extremities: normal range of motion Neurologic/Psychiatric: no motor/sensory deficits, alert, oriented x 3 Skin: normal color, warm/dry, no rash (Zeb Salazar, SULLY) Laboratory Results Last 24 Hours Test 07/14/16 22:00 07/15/16 05:10 Creatine Kinase MB 1.9 ng/ml Creatine Kinase MB Ratio Troponin I 0.019 ng/ml White Blood Count 9.17 K/uL Red Blood Count 4.56 M/uL Hemoglobin 14.4 g/dL Hematocrit 42.5 % Mean Corpuscular Volume 93.2 fL Mean Corpuscular Hemoglobin 31.6 pg Mean Corpuscular Hemoglobin Concent 33.9 g/dl Platelet Count 283 K/uL Mean Platelet Volume 9.9 fL Neutrophils (%) (Auto) 65.7 % Lymphocytes (%) (Auto) 24.3 % Monocytes (%) (Auto) 8.1 % Eosinophils (%) (Auto) 1.2 % Basophils (%) (Auto) 0.2 % Neutrophils # (Auto) 6.02 K/uL Lymphocytes # (Auto) 2.23 K/uL Monocytes # (Auto) 0.74 K/uL Eosinophils # (Auto) 0.11 K/uL Basophils # (Auto) 0.02 K/uL RDW Standard Deviation 47.4 fL RDW Coefficient of Variation 13.8 % Immature Granulocyte % (Auto) 0.5 % Immature Granulocyte # (Auto) 0.05 K/uL Prothrombin Time 10.4 SECONDS Prothromb Time International Ratio 1.0 Activated Partial Thromboplast Time 28.0 SECONDS Partial Thromboplastin Ratio 1.1 Sodium Level 138 mmol/L Potassium Level 4.3 mmol/L Chloride Level 106 mmol/L Carbon Dioxide Level 27 mmol/L Anion Gap 5.0 mmol/L Blood Urea Nitrogen 13 mg/dl Creatinine 0.85 mg/dl Est Creatinine Clear Calc Drug Dose 115.1 ml/min Estimated GFR () 112.9 Estimated GFR (Non- 97.4 BUN/Creatinine Ratio 14.9 Random Glucose 107 mg/dl Estimated Average Glucose 108 mg/dl Hemoglobin A1c 5.4 % Calcium Level 8.7 mg/dl Phosphorus Level 3.4 mg/dl Magnesium Level 2.5 mg/dl Total Bilirubin 1.0 mg/dl Direct Bilirubin 0.2 mg/dl Aspartate Amino Transf (AST/SGOT) 22 U/L Alanine Aminotransferase (ALT/SGPT) 40 U/L Alkaline Phosphatase 50 U/L Total Protein 7.1 gm/dl Albumin 3.3 gm/dl Triglycerides Level 128 mg/dl Cholesterol Level 145 mg/dl HDL Cholesterol 79 mg/dl LDL Cholesterol, Calculated 40 mg/dl VLDL Cholesterol, Calculated 26 mg/dl Cholesterol/HDL Ratio 1.8 (Zeb Salzaar CRNP) Assessment and Plan 1) paroxysmal atrial fib with rapid ventricular response - now NSR - no CP, no SOB - appreciate Dr. Eugene input. Start carvedilol. ? anticoag - will discus with Cards. 2) Cardiomyopathy with reduced EF. Dr. Eugene concerned for ischemic cause. Plan is for heart cath in am. May be alcohol related as well. 3) ETOH/tobacco abuse - PRN lorazepam - Multivit, folate, thiamine. 4) HTN - added carvedilol - monitor 5) DVT prophylaxis with lovenox 6) ELS one more midnight - d/c pending cath results Continued [facility] stay due to: other (heart cath in am) Discharge planning: home (Zeb Salazar CRNP) History Chart reviewed and agree with plan as outlined above. (Nury Yang MD)
[2016-07-15] MEDS: CARVEDILOL 6.25 MG TAB PO SCH (20:53)
[2016-07-15 23:50] VITALS: BP 131/94; PULSE 72; TEMP 36.4; O2SAT 95
[2016-07-16] VITALS (11 sets, daily range): BP systolic 119–142; BP diastolic 84–92; PULSE 61–84; TEMP 36.4–37; O2SAT 94–97
[2016-07-16 06:01] LABS: BASO % 0.3 %; BASO ABS # 0.02 K/uL (0-0.2); COMPLETE YES; EOS % 1.6 %; HEMATOCRIT 43.3 % (42-52); IG% 0.4 %; LYMPH % 31.7 %; LYMPH ABS # 2.53 K/uL (1.2-3.4); MEAN CELL VOLUME 93.5 fL (80-100); MEAN CORPUSCULAR HGB CONC 32.1 g/dl (32-36); MEAN PLATELET VOLUME 9.6 fL (7.4-10.4); MONO % 8.9 %; NEUT % 57.1 %; PLATELET COUNT 280 K/uL (130-400); RED BLOOD COUNT 4.63 M/uL (4.7-6.1); WHITE BLOOD COUNT 7.97 K/uL (4.8-10.8)
[2016-07-16 06:18] LABS: PARTIAL THROMBOPLASTIN RATIO 1.1; PROTHROMBIN TIME (PATIENT) 10.3 SECONDS (9.0-12.0)
[2016-07-16 06:46] LABS: BUN/CREATININE RATIO 13.6 (10-20); CALCIUM 8.7 mg/dl (8.5-10.1); CREATININE 0.97 mg/dl (0.60-1.40); MAGNESIUM 2.4 mg/dl (1.8-2.4); POTASSIUM 4.1 mmol/L (3.5-5.1)
[2016-07-16 06:48] LABS: PHOSPHORUS 3.8 mg/dl (2.5-4.9)
[2016-07-16] MEDS: ASPIRIN 81 MG ECTAB PO SCH (07:18)
[2016-07-16] MEDS: THIAMINE HCL 100 MG TAB PO SCH (07:18)
[2016-07-16] MEDS: CARVEDILOL 6.25 MG TAB PO SCH ×2 (07:18→20:42)
[2016-07-16] MEDS: FLINTSTONES COMPLETE CHEWABLE TAB PO SCH (07:18)
[2016-07-16] MEDS: PANTOprazole SOD 40 MG TAB PO SCH (07:18)
[2016-07-16] MEDS ORDERED: FENTANYL CITRATE INJ 50 MCG/1 ML 2 ML VIAL ONE (13:48)
[2016-07-16] MEDS ORDERED: MIDAZOLAM HCL 1 MG/ML 2ML VIAL ONE (13:48)
[2016-07-16] MEDS ORDERED: NiCARDipine HCL INJ 2.5 MG/ML 10 ML AMP ONE (13:48)
[2016-07-16] MEDS ORDERED: HEPARIN SOD (PORCINE) 1000 UNIT/ML 10 ML VIAL ONE (13:48)
[2016-07-16] MEDS ORDERED: NITROGLYCERIN/D5W 100MCG/ML 20ML SYR ONE (13:49)
--- NOTE | 2016-07-16 13:53 | Procedure Note ---
Pre-Mod Sedation Assessment General Date of Moderate Sedation: July 16, 2016. Vital Signs: Vital Signs Past 12 Hours Date Time Temp Pulse Resp B/P Pulse Ox O2 Delivery O2 Flow Rate FiO2 07/16/16 12:00 Room Air 07/16/16 11:59 36.8 64 20 119/89 94 Room Air 07/16/16 08:00 Room Air 07/16/16 07:20 36.6 67 130/90 97 Room Air 07/16/16 05:55 36.6 67 16 130/90 97 Room Air 07/16/16 04:09 36.4 61 16 125/85 95 Room Air 07/16/16 04:00 Room Air Review Cardiovascular: regular rate, rhythm, no edema, no gallop, no murmur, normal peripheral pulses Abdomen: non tender, soft Lungs: lungs clear Pre-Sedation Airway Assessment Oral Cavity: WNL Able to Visualize Vocal Cords: No Short Thick Neck: No Hx of Sleep Apnea: No Smoking Status: Never Smoker Mallampati Classification: Class III Procedure Planning Contraindications-for Mod Sed: None Yes Notes The planned sedation has been discussed with the patient and consent obtained. I have identified the patient, determined the appropriateness of sedation and have assessed the patient immediately prior to the procedure. All medicine(s) and interventions are by my order.
[2016-07-16] MEDS ORDERED: SODIUM CHLORIDE 0.9% 1000ML 250 ML IV PRN (15:10)
[2016-07-16] MEDS ORDERED: SODIUM CHLORIDE 0.9% 1000ML 1,000 ML IV SCH (15:10)
--- NOTE | 2016-07-16 15:13 | Procedure Note ---
Post-Mod Sedation Assessment General Date of Moderate Sedation July 16, 2016. Vital Signs: Vital Signs Past 12 Hours Date Time Temp Pulse Resp B/P Pulse Ox O2 Delivery O2 Flow Rate FiO2 07/16/16 14:43 65 18 106/84 98 07/16/16 12:00 Room Air 07/16/16 11:59 36.8 64 20 119/89 94 Room Air 07/16/16 08:00 Room Air 07/16/16 07:20 36.6 67 130/90 97 Room Air 07/16/16 05:55 36.6 67 16 130/90 97 Room Air 07/16/16 04:09 36.4 61 16 125/85 95 Room Air 07/16/16 04:00 Room Air Review - Discharge Criteria Vital Signs Stable: Yes Alert/Oriented/Conversant: Yes Returned to Baseline Mental St: Yes Nausea Absent/Minimal: Yes Pain/Discomfort/Absent/Minimal: Yes Normal/Baseline Respirations: Yes Active Bleeding?: No Pt Received D/C Instructions: N/A Prescriptions Given: None Specific Proced. D/C Criteria Distal Pulses Present (Cardiac: Yes Groin site assessed-Card Cath: N/A Voided Prior To Discharge: N/A Discharged Patients Adult Escort/Transportation: N/A
[2016-07-16] MEDS ORDERED: ATROPINE SULFATE 0.1 MG/ML 5ML SYR IV PRN (15:15)
[2016-07-16] MEDS ORDERED: ACETAMINOPHEN 325 MG TAB PO PRN (15:15)
[2016-07-16] MEDS ORDERED: ONDANSETRON INJ 2 MG/ML 2 ML VIAL IV PRN (15:15)
--- NOTE | 2016-07-16 15:30 | Cardiac Catheterization ---
Procedure Note Procedure Date July 16, 2016. Pre-Procedure Diagnosis Cardiomyopathy AUC Score 7 Post-Procedure Diagnosis Normal Coronary Arteries, Elevated Intracardiac Pressures (Mildly elevated left ventricular end diastolic pressure of 15 millimeters Hg) Procedure(s) Performed Coronary Angiography, Left Heart Cath, LV Angiography Catheter Builder Dr. Rios Suture Gauger(s) ANNA Leos Estimated Blood Loss 20 ml Medication(s) Fentanyl, Heparin, Nicardipine (Intra-arterial), Versed, Lidocaine 1% Summary of Findings Clinical indications: Admission for atrial fibrillation with rapid ventricular response. This was in the setting of heavy alcohol use. Electrocardiogram with the atrial fibrillation with rapid ventricular response with inferolateral ST segment changes suggestive of ischemia. Echocardiogram with global hypokinesis of the left ventricle. LV ejection fraction 40-45 percent. Mild mitral regurgitation. No clear etiology for the cardiomyopathy. Cardiac catheterization with coronary angiography indicated to assess for presence of significant underlying coronary artery disease. Chest pain radiating to the back during atrial fibrillation with rapid ventricular response. Symptoms consistent with unstable angina. Catheterization site: 6 Nepalese glide sheath right radial artery. Catheters: 5 Nepalese brachial 3.5 diagnostic catheter and 4 Nepalese pigtail catheter. It had been attempted to insert a 6 [place]alese pigtail catheter. This was unsuccessful because of radial artery spasm. The 4 Nepalese pigtail catheter was able to be advanced into the ascending aorta. Contrast agent: Visipaque. Hemostasis: Terumo TR band. Complications: None. Findings: Fluoroscopy did not reveal coronary calcifications. The coronary circulation was right dominant. The left main coronary artery was a large caliber vessel without obstructive disease. It gave rise to large caliber left anterior descending and left circumflex coronary arteries. The LAD was normal. The proximal LAD gave rise to a long small caliber diagonal artery which was normal. The left circumflex was normal.the very proximal left circumflex gave rise to a very small caliber diagonal type artery. It gave rise to a very small caliber marginal artery. The mid left circumflex gave rise to a long medium large caliber 2nd marginal artery which was normal. The right coronary was a medium caliber vessel. It was normal. It gave rise to very small caliber posterior descending and posterolateral arteries which had no obstructive disease. Left ventricular angiography was performed from the 30 degree right anterior oblique projection. On a post PVC beat there was normal LV systolic function and wall motion. Left ventricular ejection fraction was measured at 60 percent. No mitral regurgitation. No segmental wall motion abnormalities. Recommendations and plan: No indication for coronary revascularization procedure. Patient will have continued cardiology follow-up with Dr. Eugene. Will be continued on medical therapy for his LV systolic dysfunction on echo. He will be encouraged to discontinue alcohol consumption. Hemodynamics Rest Ao: 129/72/93 mm Hg Final Ao: 130/78/100 mm Hg LV: 129/15 mm Hg Recommendations Medical therapy and/or Counseling Specimens None Radiation Exposure (mGy) 1053 Contrast (mls) 90 ml Visipaque Fluids (cc crystalloids) 85 ml Drains none Anesthesia IV versed,fentanyl. Lidocaine 1 %. Procedural Complication(s) None Disposition PCU ACC Data Cardiac Status Clinical evaluation leading to the procedure CAD Presntation: Unstable angina Anginal Classification: CCS IV Heart Failure: No Cardiogenic Shock w/in 24Hrs: No Cardiac Arrest w/in 24Hrs: No Imaging studies past 6 months: Yes Stress studies past 6 months: No Standard Exercise Stress Test: No Stress Echocardiogram: No Stress Testing w/SPECT MPI: No Cardiac CTA: No Coronary Anatomy Dominant: Right Left Main (% Stenosis): Normal LAD (% Stenosis): Normal D1 (% Stenosis): Normal Circumflex (% Stenosis): Normal OM1 (% Stenosis): Normal OM2 (% Stenosis): Normal RCA (% Stenosis): Normal R PDA (% Stenosis): Normal R PL1 (% Stenosis): Normal Left Ventricular Angiography EF (%): 60 Wall Motion: Inferior (Normal), Apical (Normal), Anterior (Normal) Mitral Regurgitation: None Diagnostic Physician's Name: Jose Cruz Rios M.D. Status: Elective Closure Device Percutaneous Entry Location: Radial Closure Device: Radial Band Recommendations: Medical therapy and/or Counseling
[2016-07-16] MEDS: ENOXAPARIN 40 MG/0.4 ML SYR SC SCH (15:48)
[2016-07-16] MEDS ORDERED: CRG625 PO (16:05)
--- NOTE | 2016-07-16 16:31 | Discharge Instructions ---
Discharge Instructions Date of Service July 16, 2016. Admission Reason for Admission: Afib With Rvr,Heavy Alcohol Intake For Years Discharge Discharge Diagnosis / Problem: A-Fib with RVR, Alcohol Abuse, Mild Cardiomyopathy Discharge Goals Goal(s): Improve function, Increase independence, Improve disease control, Improve nutritional status, Learn about illness Activity Recommendations Activity Limitations: resume your previous activity Lifting Limitations: gradually increase as tolerated Exercise/Sports Limitations: as tolerated Shower/Bathe: no limitations Driving or Machine Use: no limitations . Instructions / Follow-Up Instructions / Follow-Up Will need to follow up with cardiology in a week or two. Follow up with PCP in a week. Now in normal rhythm. Started on blood pressure medication carvedilol that will help prevent the heart from beating fast. Heart Catheterization today did not show any significant narrowing in the coronary arteries. Current Hospital Diet Patient's current hospital diet: AHA Diet (Heart Healthy) Discharge Diet Recommended Diet: AHA Diet (Heart Healthy) Pending Studies Studies pending at discharge: no Laboratory Results Hemoglobin A1c Test 07/15/16 05:10 Range/Units Estimated Average Glucose 108 mg/dl Hemoglobin A1c 5.4 4.5-5.6 % Lipid Panel Test 07/15/16 05:10 Range/Units Triglycerides Level 128 0-150 mg/dl Cholesterol Level 145 0-200 mg/dl HDL Cholesterol 79 mg/dl Cholesterol/HDL Ratio 1.8 LDL Cholesterol, Calculated 40 mg/dl Medical Emergencies . Who to Call and When: Medical Emergencies: If at any time you feel your situation is an emergency, please call 911 immediately. . Non-Emergent Contact Non-Emergency issues call your: Primary Care Provider Call Non-Emergent contact if: temperature is above 101.5, your pain is not controlled . . "Provider Documentation" section prepared by Zeb Salazar. . VTE Core Measure Inpt VTE Proph given/why not?: Unfractionated heparin SQ, T.E.D. Stockings, SCD 's
--- NOTE | 2016-07-16 21:32 | Discharge Summary ---
Discharge Summary Date of Service July 16, 2016. Discharge Summary Admission Date: July 14, 2016 at 11:18 Discharge Date: July 16, 2016 Discharge Disposition: Home Principal Diagnosis: paroxysmal atrial fib with rapid ventricular response Problems/Secondary Diagnoses: Medical Problems: (1) afib wit rvr, heavy alcohol intake for yrs Procedures: Heart Catheterization Findings: Fluoroscopy did not reveal coronary calcifications. The coronary circulation was right dominant. The left main coronary artery was a large caliber vessel without obstructive disease. It gave rise to large caliber left anterior descending and left circumflex coronary arteries. The LAD was normal. The proximal LAD gave rise to a long small caliber diagonal artery which was normal. The left circumflex was normal.the very proximal left circumflex gave rise to a very small caliber diagonal type artery. It gave rise to a very small caliber marginal artery. The mid left circumflex gave rise to a long medium large caliber 2nd marginal artery which was normal. The right coronary was a medium caliber vessel. It was normal. It gave rise to very small caliber posterior descending and posterolateral arteries which had no obstructive disease. Left ventricular angiography was performed from the 30 degree right anterior oblique projection. On a post PVC beat there was normal LV systolic function and wall motion. Left ventricular ejection fraction was measured at 60 percent. No mitral regurgitation. No segmental wall motion abnormalities. Recommendations and plan: No indication for coronary revascularization procedure. Patient will have continued cardiology follow-up with Dr. Eugene. Will be continued on medical therapy for his LV systolic dysfunction on echo. He will be encouraged to discontinue alcohol consumption. Consultations: Dr. Eugene Cardiology Medication Reconciliation New Medications: Carvedilol (Carvedilol) 6.25 Mg Tab 6.25 MG PO BID, #60 TAB Continued Medications: Aspirin (Aspirin Chewable) 81 Mg Chew 81 MG PO DAILY Discontinued Medications: Aspirin (Aspirin) 325 Mg Tab 650 MG PO DAILY PRN for Dizziness or Vertigo Discharge Exam Review of Systems: Constitutional: No chills, No fatigue, No fever, No problem reported, No sweats, No weakness, No weight loss Respiratory: No cough, No dyspnea at rest, No dyspnea on exertion, No hemoptysis, No problem reported, No shortness of breath, No sputum, No wheezing Cardiovascular: No PND, No chest pain, No claudication, No edema, No orthopnea, No palpitations, No problem reported Abdomen: No GI bleeding, No constipation, No diarrhea, No nausea, No pain, No problem reported, No vomiting Musculoskeletal: No calf pain, No joint pain, No muscle pain, No problem reported, No swelling Neurologic: No balance problems, No memory loss, No numbness/tingling, No paralysis, No problem reported, No vertigo, No weakness Physical Exam: General Appearance: WD/WN ENT: pharynx normal Neck: supple, no JVD Respiratory/Chest: lungs clear, normal breath sounds, no respiratory distress Cardiovascular: regular rate, rhythm, no edema, no murmur Abdomen / GI: normal bowel sounds, non tender, soft Extremities: normal inspection, no pedal edema Neurologic/Psychiatric: alert, normal mood/affect, oriented x 3 Hospital Course 55 year old gentleman admitted with palpitations and chest pain. Found to be in atrial fibrillation with rapid ventricular response with heart rate in the 170s. He was given a Cardizem bolus of 20mg, started on a Cardizem infusion at 10mg/hour and placed under the hospitalist service in telemetry bed. For the paroxysmal atrial fib with rapid ventricular response - converted to NSR the next morning and the Cardizem infusion was stopped. Started on Carvedilol for rate control. Cardiology to make final decision on anticoagulant as outpatient. No more chest pain or shortness of breath. Troponin's were normal and acute coronary syndrome was ruled out. He was seen by Dr. Eugene and an ECHO was ordered - EF was 40-45% which was decreased from two years prior with mild cardiomyopathy. A heart catheterization was recommended which he underwent today and there was no significant disease. Cardiology will continue to follow as outpatient and continue to adjust medications and may further add JHOANA and diuretic. Carvedilol was started for the A-fib and cardiomyopathy. Patient drinks alcohol regularly and we did discus cessation. He will be discharged home to follow up with his PCP next week and Cardiology in a couple weeks. Total Time Spent: Greater than 30 minutes This includes examination of the patient, discharge planning, medication reconciliation, and communication with other providers. Discharge Instructions Please refer to the electronic Patient Visit Report (Discharge Instructions) for additional information. Follow-Up Valorie 2 weeks PCP 1 week
== END 2016-07-16 20:45 | disposition home or self-care (01) | DRG 287 ==
LOC: ENRESERVDT → ENRESERVTM → C.EDB 08:13 → C.2E 11:18
PROVIDERS: ADMIT Hospitalist; ATTEND Hospitalist
PROC: B2111ZZ Fluoroscopy of Multiple Coronary Arteries using Low Osmolar Contrast (ICD-10-PCS; principal; 2016-07-16 13:47)
PROC: 4A023N7 Measurement of Cardiac Sampling and Pressure, Left Heart, Percutaneous Approach (ICD-10-PCS; principal; 2016-07-16 13:47)
PROC: B2151ZZ Fluoroscopy of Left Heart using Low Osmolar Contrast (ICD-10-PCS; principal; 2016-07-16 13:47)
DX: I48.0 Paroxysmal atrial fibrillation (principal); I25.5 Ischemic cardiomyopathy; I48.91 Unspecified atrial fibrillation; F41.9 Anxiety disorder, unspecified; F10.20 Alcohol dependence, uncomplicated

== ENCOUNTER → 2017-02-07 | Outpatient (CLI) | payer BC ==
[~2017-02-07] MED LIST: ASPCH81X PO; CRG625 PO
== END | disposition home or self-care (01) ==
LOC: C.LABMFLN 16:46
PROVIDERS: ATTEND Physician Assistant
DX: Z12.5 Encounter for screening for malignant neoplasm of prostate (principal)